=== PATIENT | male | born 1950 | race Caucasian/White ===

== ENCOUNTER 2018-06-18 07:29 | Inpatient (IN) | payer MEDICARE, BC ==
[~2018-06-18 07:29] MED LIST: Lactated Ringers 1,000 ML IV SCH; Lidocaine 1%/Sod Bicarbonate in NS 8.4% 1 ML Syringe IDERM PRN; Sodium Chloride 0.9% 10 ML Syringe FLUSH PRN
--- NOTE | 2018-06-18 08:04 | PCM.PREANE ---
Preanesthetic Assessment - Anesthesia/Transfusion/Family Hx Anesthesia History: Prior Anesthesia Without Reaction Transfusion History: No Prior Transfusion(s) - Review of Systems General: No Symptoms Pulmonary: No Symptoms Cardiovascular: No Symptoms Gastrointestinal: No Symptoms Neurological: No Symptoms Other: Reports: None - Physical Assessment NPO Status Date: 06/17/18 NPO Status Time: 20:00 O2 Sat by Pulse Oximetry: 95 Respiratory Rate: 18 Blood Pressure: 122/87 Temperature: 97.9 F ASA Class: 3 Mental Status: Alert & Oriented x3 Airway Class: Mallampati = 3 (short wide neck) Dentition: Reports: [place](s), Broken Tooth/Teeth Thyro-Mental Finger Breadths: 3 Mouth Opening Finger Breadths: 3 ROM/Head Extension: Full Lungs: Clear to Auscultation Cardiovascular: Regular Rate - Lab Values: Laboratory Last Values C-Reactive Protein 0.2 mg/dL (<1.0) 06/14/18 08:04 MRSA (PCR) Negative 05/22/18 10:48 - Allergies Allergies/Adverse Reactions: Allergies Allergy/AdvReac Type Severity Reaction Status Date / Time No Known Allergies Allergy Verified 06/18/18 08:16 - Anesthesia Plan Beta Delicia: Metoprolol Med Last Dose Date: 06/18/18 Med Last Dose Time: 05:30 - Acknowledgements Anesthesia Type Planned: General Anesthesia, Regional Block (Left interscalene) Pt an Appropriate Candidate for the Planned Anesthesia: Yes Alternatives and Risks of Anesthesia Discussed w Pt/Guardian: Yes Pt/Guardian Understands and Agrees with Anesthesia Plan: Yes PreAnesthesia Questionnaire HEENT History: Reports: Other (See Below) Other HEENT History: tonsillitis Cardiovascular History: Reports: CAD, High Cholesterol, Hypertension Other Cardiovascular History: Denies having any heart attack. 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 Respiratory History: Reports: None Gastrointestinal History: Reports: Hemorrhoids Musculoskeletal History: Reports: Other (See Below) Other Musculoskeletal History: left shoulder pain, sciatica, left index fingetip amputation Endocrine/Metabolic History: Reports: None, Obesity/BMI 30+ - Past Surgical History Head Surgeries/Procedures: Reports: None HEENT Surgical History: Reports: Tonsillectomy Cardiovascular Surgical History: Reports: Coronary Artery Bypass Respiratory Surgical History: Reports: None GI Surgical History: Reports: Colonoscopy (x5) Male Surgical History: Reports: Vasectomy Endocrine Surgical History: Reports: None Neurological Surgical History: Reports: None Musculoskeletal Surgical History: Reports: None Oncologic Surgical History: Reports: None Dermatological Surgical History: Reports: None - SUBSTANCE USE Smoking Status *Q: Former Smoker Second Hand Smoke Exposure: No Days Per Week of Alcohol Use: 7 Number of Drinks Per Day: 2 Total Drinks Per Week: 14 Recreational Drug Use History: No - HOME MEDS Home Medications: Home Meds Allopurinol [Zyloprim] 100 mg PO DAILY 06/15/18 [History] Aspirin 81 mg PO DAILY 06/15/18 [History] Fish Oil/[place]-3 Fatty Acids [Fish Oil 1,000 MG] 1 gm PO BID 06/15/18 [History] Lisinopril 20 mg PO DAILY 06/15/18 [History] Metoprolol Tartrate 12.5 mg PO BID 06/15/18 [History] Omeprazole Magnesium [Prilosec Otc] 20 mg PO DAILY 06/15/18 [History] Rosuvastatin Calcium [Crestor] 40 mg PO BEDTIME 06/15/18 [History] Tamsulosin [Flomax] 0.4 mg PO DAILY 06/15/18 [History] Ubidecarenone [Coq-10] 100 mg PO DAILY 06/15/18 [History] amLODIPine Besylate [Norvasc] 5 mg PO DAILY 06/15/18 [History] - CURRENT (IN HOUSE) MEDS Current Meds: Current Medications Aspirin (Ecotrin) 325 mg PO BID [facility] Bisacodyl (Dulcolax) 5 mg PO DAILY PRN PRN Reason: Constipation Cyclobenzaprine HCl (Flexeril) 10 mg PO TID PRN PRN Reason: Spasms Docusate Sodium (Colace) 100 mg PO BID [facility] Famotidine (Pepcid) 20 mg PO Q12H [facility] Lactated Ringer's (Ringers, Lactated) 1,000 mls @ 125 mls/hr IV ASDIRECTED [facility] Stop: 06/18/18 23:00 Cefazolin Sodium/Dextrose 2 gm (/ Premix) 50 mls @ 100 mls/hr IV Q8H [facility] Stop: 06/18/18 23:14 Ketorolac Tromethamine (Toradol) 15 mg IVPUSH Q6H PRN PRN Reason: Pain Lidocaine/Sodium Bicarbonate (Buffered Lidocaine 1% In Ns 8.4%) 0.25 ml IDERM ONETIME PRN PRN Reason: Prior to IV Start Stop: 06/18/18 18:00 Magnesium Hydroxide (Milk Of Magnesia) 30 ml PO BID PRN PRN Reason: Constipation Morphine Sulfate (Morphine) 2 mg IVPUSH Q2H PRN PRN Reason: Breakthrough Pain Naloxone HCl (Narcan) 0.1 mg IVPUSH Q5M PRN PRN Reason: Oversedation Ondansetron HCl (Zofran) 4 mg IVPUSH Q6H PRN PRN Reason: Nausea/Vomiting Oxycodone/Acetaminophen (Percocet 325-5 Mg) 1 - 2 tab PO Q4H PRN PRN Reason: Pain Senna (Senna) 8.6 mg PO BID PRN PRN Reason: Constipation Sodium Chloride (Saline Flush) 10 ml FLUSH ASDIRECTED PRN PRN Reason: Keep Vein Open Stop: 06/18/18 18:00
[2018-06-18] MEDS ORDERED: Midazolam 1 MG/ML 2 ML SDV ONE (08:27)
[2018-06-18] MEDS ORDERED: fentaNYL 100 MCG/2 ML SDV ONE ×2 (08:27→10:03)
[2018-06-18] MEDS ORDERED: Ropivacaine 0.5% 5 MG/ML 30 ML SDV ONE (08:38)
[2018-06-18] MEDS ORDERED: EPINEPHrine 1 MG/ML SDV ONE (08:38)
[2018-06-18] MEDS ORDERED: Triamcinolone Acetonide 40 MG/ML 1 ML MDV ONE (09:18)
[2018-06-18] MEDS ORDERED: Bupivacaine 0.25% 10 ML SDV ONE (09:18)
[2018-06-18] MEDS ORDERED: ceFAZolin 1 GM Vial ONE (10:02)
[2018-06-18] MEDS ORDERED: Lactated Ringers 1,000 ML ONE (10:25)
[2018-06-18] MEDS ORDERED: Succinylcholine/Normal Saline 100 MG/5 ML Syringe ONE (10:25)
[2018-06-18] MEDS ORDERED: Rocuronium 50 MG/5 ML Vial ONE ×2 (10:25→10:54)
[2018-06-18] MEDS ORDERED: Etomidate 2 MG/ML 20 ML SDV IVPUSH ONE (10:25)
[2018-06-18] MEDS: Iodine/Sodium Iodide 2% Tincture 30 ML Bottle ONE ×2 (11:30→12:12)
[2018-06-18] MEDS: ceFAZolin 1 GM Vial ONE ×2 (11:31→12:13)
--- NOTE | 2018-06-18 11:31 | PCM.PRNOTE ---
- Free Text/Narrative Note: Postoperative regional pain control requested by surgeon. [Lt INTERSCALENE REGIONAL BLOCK] Diagnosis: Left shoulder osteoarthritis. Surgery: Left total shoulder arthroplasty Procedure: Left Interscalene Nerve Block with U/S guidance and nerve stimulator Risks and benefits discussed with the patient, including left upper extremity weakness x 24 hrs., block failure, postoperative neck pain, possible nerve damage, facial redness and difficulty breathing. Vital signs and labs reviewed. Permit signed. .Patient in preoperative area, supine on the stretcher with head rotated slightly to the right, positioning using the pillow. Time out done, IV Midazolam 2 mg and Fentanyl 50 mcg given . Oxygen 2 L via nasal cannula. Patient maintains communication with the provider throughout the procedure. Left side of the neck was prepped with Chloraprep x 1 and allowed to dry. Under aseptic technique the left subclavian artery and brachial plexus cords were identified under ultrasound, and subsequently the probe was moved cephalad while keeping the brachial plexus in view until the trunks/divisions were visualized between the scalene muscles prior to needle insertion. Local infiltration with 1% Lidocaine. 2" Stimuplex needle #22 G was inserted under US guidance. Biceps brachii muscle response obtained at 0.5 mA with nerve stimulation. Under direct visualization of needle tip the injection of 0.5% Ropivacaine with 150 mcg of epinephrine total of 30 mls was injected in divided doses maintaining negative aspiration was completed without problems. Patient has tolerated the procedure well. No local anesthetic toxicity was noted. Ultrasound images are attached to the chart. Time: :11 - 09:21 Date: 06/18/2018 Roverto Del Real CRNA
[2018-06-18] MEDS: Bupivacaine 0.25% 30 ML SDV ONE ×2 (11:33→12:32)
[2018-06-18] MEDS: Vancomycin 1 GM SDV ONE ×2 (11:34→12:17)
[2018-06-18] MEDS ORDERED: Lidocaine 1% 2 ML ONE (11:41)
[2018-06-18] MEDS ORDERED: Ondansetron 4 MG/2 ML SDV ONE (11:45)
[2018-06-18] MEDS ORDERED: Dexamethasone 4 MG/ML 5 ML MDV ONE (11:50)
[2018-06-18] MEDS ORDERED: Magnesium Hydroxide 400 MG/5 ML Susp 30 ML Cup PO PRN (12:00)
[2018-06-18] MEDS ORDERED: Naloxone 0.4 MG/ML SDV IVPUSH PRN (12:00)
[2018-06-18] MEDS ORDERED: Bisacodyl 5 MG Tab PO PRN (12:00)
[2018-06-18] MEDS ORDERED: Sennosides 8.6 MG Tab PO PRN (12:00)
[2018-06-18] MEDS ORDERED: Morphine 2 MG/ML Syringe IVPUSH PRN (12:00)
[2018-06-18] MEDS ORDERED: Ondansetron 4 MG/2 ML SDV IVPUSH PRN (12:00)
--- NOTE | 2018-06-18 13:02 | PCM.POSTAN ---
POST ANESTHESIA ASSESSMENT - MENTAL STATUS Mental Status: Alert, Oriented - VITAL SIGNS Pulse Rate: 74 SaO2: 94 Resp Rate: 15 Blood Pressure: 137/70 Temperature: 98.5 F - RESPIRATORY Respiratory Status: Respiratory Rate WNL, O2 Saturation Stable, Supplemental Oxygen - CARDIOVASCULAR CV Status: Pulse Rate WNL, Blood Pressure Stable - GASTROINTESTINAL GI Status: No Symptoms - POST OP HYDRATION Hydration Status: Adequate & Stable
[2018-06-18] MEDS: Ketorolac 15 MG/ML SDV IVPUSH PRN ×2 (13:59→20:38)
[2018-06-18] MEDS ORDERED: Scopolamine 1.5 MG Transdermal Patch TRDERM PRN (16:10)
[2018-06-18] MEDS: ceFAZolin 2 GM in Premix Bag 1 BAG IV SCH (17:49)
[2018-06-18] MEDS: Docusate Sodium 100 MG Cap PO SCH (20:34)
[2018-06-18] MEDS: Metoprolol Tartrate 25 MG Tab PO SCH (20:35)
[2018-06-18] MEDS: Acetaminophen/oxyCODONE 325-5 MG Tab PO PRN (20:36)
[2018-06-18] MEDS ORDERED: Famotidine 20 MG Tab PO SCH (21:00)
[2018-06-18] MEDS ORDERED: Rosuvastatin 10 MG Tab PO SCH (21:00)
--- NOTE | 2018-06-18 21:03 | PCM.SN ---
- Free Text/Narrative Note: In to see Bertrand. He is doing well overall. States he has no pain, but does have some numbness/tingling in his left thumb and pointer finger. Otherwise his left hand is neurovascularly intact. No other complaints at this time. He denies any headache, F/C, N/V/D, CP, SOB. No concerns from nursing.
[2018-06-19] MEDS: Acetaminophen/oxyCODONE 325-5 MG Tab PO PRN ×3 (02:52→11:15)
[2018-06-19] MEDS: ceFAZolin 2 GM in Premix Bag 1 BAG IV SCH ×2 (02:52→09:09)
[2018-06-19] MEDS: Cyclobenzaprine 10 MG Tab PO PRN ×2 (02:53→10:33)
--- NOTE | 2018-06-19 06:27 | PCM.CONSN ---
- General Info Date of Service: 06/19/18 Admission Dx/Problem (Free Text): Osteoarthritis of shoulder Subjective Update: In to see Ed. He is doing very well. He has been working with therapies and they report he is doing well. He is off oxygen and has urinated. He has no complaints or concerns. No nursing concerns. Functional Status: Reports: Pain Controlled, Tolerating Diet, Ambulating, Urinating, Incentive Spirometry. Denies: New Symptoms - Review of Systems General: Reports: No Symptoms. Denies: Fever HEENT: Reports: No Symptoms Pulmonary: Reports: No Symptoms. Denies: Shortness of Breath, Cough, Wheezing Cardiovascular: Reports: No Symptoms. Denies: Chest Pain, Palpitations, Lightheadedness Gastrointestinal: Reports: No Symptoms. Denies: Abdominal Pain, Constipation, Diarrhea, Nausea, Vomiting Genitourinary: Reports: No Symptoms Musculoskeletal: Reports: Arm Pain Skin: Reports: No Symptoms Neurological: Reports: No Symptoms Psychiatric: Reports: No Symptoms - Patient Data Vitals - Most Recent: Last Vital Signs Temp 98.8 F 06/19/18 03:35 Pulse 59 L 06/19/18 03:35 Resp 18 06/19/18 03:35 BP 102/64 06/19/18 03:35 Pulse Ox 98 06/19/18 03:35 Weight - Most Recent: 214 lb 5 oz I&O - Last 24 Hours: Intake & Output 06/18/18 06/18/18 06/19/18 14:59 22:59 06:59 Intake Total 50 500 550 Balance 50 500 550 Lab Results Last 24 Hours: Laboratory Results - last 24 hr 06/19/18 06/19/18 Range/Units 04:55 04:55 WBC 17.22 H (4.23-9.07) K/mm3 RBC 4.48 L (4.63-6.08) M/mm3 Hgb 13.4 L (13.7-17.5) gm/L Hct 39.6 L (40.1-51.0) % MCV 88.4 (79.0-92.2) fl MCH 29.9 (25.7-32.2) pg MCHC 33.8 (32.2-35.5) g/dl RDW Std Deviation 43.0 (35.1-43.9) fL Plt Count 246 (163-337) K/mm3 MPV 10.4 (9.4-12.3) fl Sodium 138 (136-145) mEq/L Potassium 4.5 (3.5-5.1) mEq/L Chloride 105 (98-107) mEq/L Carbon Dioxide 24 (21-32) mEq/L Anion Gap 13.5 (5-15) BUN 20 H (7-18) mg/dL Creatinine 1.1 (0.7-1.3) mg/dL Est Cr Clr Drug Dosing 62.18 mL/min Estimated GFR (MDRD) > 60 (>60) mL/min BUN/Creatinine Ratio 18.2 H (14-18) Glucose 132 H (80-115) mg/dL Calcium 8.6 (8.5-10.1) mg/dL Total Bilirubin 0.5 (0.2-1.0) mg/dL AST 15 (15-37) U/L ALT 21 (16-63) U/L Alkaline Phosphatase 57 (46-116) U/L Total Protein 6.2 L (6.4-8.2) g/dl Albumin 3.2 L (3.4-5.0) g/dl Globulin 3.0 gm/dL Albumin/Globulin Ratio 1.1 (1-2) Med Orders - Current: Current Medications Allopurinol (Zyloprim) 100 mg PO DAILY [facility] Amlodipine Besylate (Norvasc) 5 mg PO DAILY [facility] Aspirin (Ecotrin) 325 mg PO BID [facility] Bisacodyl (Dulcolax) 5 mg PO DAILY PRN PRN Reason: Constipation Cyclobenzaprine HCl (Flexeril) 10 mg PO TID PRN PRN Reason: Spasms Last Admin: 06/19/18 02:53 Dose: 10 mg Docusate Sodium (Colace) 100 mg PO BID [facility] Last Admin: 06/18/18 20:34 Dose: 100 mg Cefazolin Sodium/Dextrose 2 gm (/ Premix) 50 mls @ 100 mls/hr IV Q8H [facility] Stop: 06/19/18 10:29 Last Admin: 06/19/18 02:52 Dose: 100 mls/hr Ketorolac Tromethamine (Toradol) 15 mg IVPUSH Q6H PRN PRN Reason: Pain Last Admin: 06/18/18 20:38 Dose: 15 mg Lisinopril (Prinivil) 20 mg PO DAILY [facility] Magnesium Hydroxide (Milk Of Magnesia) 30 ml PO BID PRN PRN Reason: Constipation Metoprolol Tartrate (Lopressor) 12.5 mg PO BID [facility] Last Admin: 06/18/18 20:35 Dose: 12.5 mg Miscellaneous Information (Remove Patch) 1 ea TRDERM Q72H PRN PRN Reason: patch removal Morphine Sulfate (Morphine) 2 mg IVPUSH Q2H PRN PRN Reason: Breakthrough Pain Naloxone HCl (Narcan) 0.1 mg IVPUSH Q5M PRN PRN Reason: Oversedation Ondansetron HCl (Zofran) 4 mg IVPUSH Q6H PRN PRN Reason: Nausea/Vomiting Last Admin: 06/18/18 13:59 Dose: 4 mg Oxycodone/Acetaminophen (Percocet 325-5 Mg) 1 - 2 tab PO Q4H PRN PRN Reason: Pain Last Admin: 06/19/18 02:52 Dose: 2 tab Pantoprazole Sodium (Protonix) 40 mg PO DAILY [facility] Rosuvastatin Calcium (Crestor) 40 mg PO BEDTIME [facility] Last Admin: 06/18/18 20:34 Dose: 40 mg Scopolamine (Transderm-Scop) 1.5 mg TRDERM Q72H PRN PRN Reason: Nausea Last Admin: 06/18/18 16:28 Dose: 1.5 mg Senna (Senna) 8.6 mg PO BID PRN PRN Reason: Constipation Tamsulosin HCl (Flomax) 0.4 mg PO DAILY [facility] Discontinued Medications Bupivacaine HCl (Marcaine 0.25%) Confirm Administered Dose 30 ml .ROUTE .STK- MED ONE Stop: 06/18/18 09:06 Last Admin: 06/18/18 12:32 Dose: 10 ml Bupivacaine HCl (Sensorcaine-Mpf 0.25%) Confirm Administered Dose 10 ml .ROUTE .STK-MED ONE Stop: 06/18/18 09:19 Cefazolin Sodium (Ancef) Confirm Administered Dose 2 gm .ROUTE .STK-MED ONE Stop: 06/18/18 09:06 Last Admin: 06/18/18 12:13 Dose: 2 gm Cefazolin Sodium (Ancef) Confirm Administered Dose 2 gm .ROUTE .STK-MED ONE Stop: 06/18/18 10:03 Dexamethasone (Dexamethasone) Confirm Administered Dose 20 mg .ROUTE .STK-MED ONE Stop: 06/18/18 11:51 Epinephrine HCl (Adrenalin) Confirm Administered Dose 1 mg .ROUTE .STK-MED ONE Stop: 06/18/18 08:39 Etomidate (Amidate) Confirm Administered Dose 40 mg IVPUSH .STK-MED ONE Stop: 06/18/18 10:26 Famotidine (Pepcid) 20 mg PO Q12H [facility] Fentanyl (Sublimaze) Confirm Administered Dose 100 mcg .ROUTE .STK-MED ONE Stop: 06/18/18 08:28 Fentanyl (Sublimaze) Confirm Administered Dose 100 mcg .ROUTE .STK-MED ONE Stop: 06/18/18 10:04 Lactated Ringer's (Ringers, Lactated) 1,000 mls @ 125 mls/hr IV ASDIRECTED [facility] Stop: 06/18/18 23:00 Last Admin: 06/18/18 08:40 Dose: 125 mls/hr Lactated Ringer's (Ringers, Lactated) Confirm Administered Dose 1,000 mls @ as directed .ROUTE .ST-MED ONE Stop: 06/18/18 10:26 Lidocaine HCl (Xylocaine-Mpf 1%) Confirm Administered Dose 5 mls @ as directed .ROUTE .ST-MED ONE Stop: 06/18/18 10:26 Lidocaine HCl (Xylocaine-Mpf 1%) Confirm Administered Dose 2 mls @ as directed .ROUTE .STK-MED ONE Stop: 06/18/18 11:42 Iodine (Iodine 2% Mild Tincture) Confirm Administered Dose 30 ml .ROUTE .ST- MED ONE Stop: 06/18/18 09:06 Last Admin: 06/18/18 12:12 Dose: 18 ml Lidocaine/Sodium Bicarbonate (Buffered Lidocaine 1% In Ns 8.4%) 0.25 ml IDERM ONETIME PRN PRN Reason: Prior to IV Start Stop: 06/18/18 18:00 Midazolam HCl (Versed 1 Mg/Ml) Confirm Administered Dose 2 mg .ROUTE .STK-MED ONE Stop: 06/18/18 08:28 Non-Formulary Medication (Ubidecarenone) 100 mg PO DAILY [facility] Ondansetron HCl (Zofran) Confirm Administered Dose 8 mg .ROUTE .STK-MED ONE Stop: 06/18/18 11:46 Rocuronium [place] (Zemuron) Confirm Administered Dose 50 mg .ROUTE .STK-MED ONE Stop: 06/18/18 10:26 Rocuronium [place] (Zemuron) Confirm Administered Dose 50 mg .ROUTE .STK-MED ONE Stop: 06/18/18 10:55 Ropivacaine (Naropin 0.5%) Confirm Administered Dose 30 ml .ROUTE .STK-MED ONE Stop: 06/18/18 08:39 Sodium Chloride (Saline Flush) 10 ml FLUSH ASDIRECTED PRN PRN Reason: Keep Vein Open Stop: 06/18/18 18:00 Succinylcholine Chloride (Succinylcholine In Ns Pf) Confirm Administered Dose 100 mg .ROUTE .STK-MED ONE Stop: 06/18/18 10:26 Tranexamic Acid (Cyklokapron) Confirm Administered Dose 1,000 mg .ROUTE .STK- MED ONE Stop: 06/18/18 09:06 Last Admin: 06/18/18 12:17 Dose: 1,000 mg Triamcinolone Acetonide (Kenalog-40) Confirm Administered Dose 80 mg .ROUTE .STK -MED ONE Stop: 06/18/18 09:19 Vancomycin HCl (Vancomycin) Confirm Administered Dose 1 gm .ROUTE .STK-MED ONE Stop: 06/18/18 09:06 Last Admin: 06/18/18 12:17 Dose: 1 gm - Exam Quality Assessment: DVT Prophylaxis. No: Supplemental Oxygen, Urine Catheter General: Alert, Oriented, Cooperative, No Acute Distress HEENT: Pupils Equal, Pupils Reactive, EOMI, Mucous Membr. Moist/[place] Neck: Supple Lungs: Clear to Auscultation, Normal Respiratory Effort Cardiovascular: Regular Rate, Regular Rhythm GI/Abdominal Exam: Normal Bowel Sounds, Soft, Non-Tender, No Distention (Male) Exam: Deferred Back Exam: Normal Inspection, Full Range of Motion Extremities: No Pedal Edema, Normal Capillary Refill, Arm Pain, Limited Range of Motion, Other (Bandage in place on left shoulder) Skin: Warm, Dry, Intact Wound/Incisions: Dressing Dry and Intact, No Drainage Neurological: No New Focal Deficit Psy/Mental Status: Alert, Normal Affect, Normal Mood Consult PN Assessment/Plan POD#: 1 Procedures: Procedures ASSAY OF TROPONIN QUANT (08/03/16) MRI JOINT UPR EXTREM W/O DYE (04/11/18) OFFICE/OUTPATIENT VISIT NEW (08/03/16) ROUTINE VENIPUNCTURE (08/03/16) X-RAY EXAM OF SKULL (04/11/18) (1) Status post total replacement of left shoulder SNOMED Code(s): 835319689, 778864968 Code(s): Z96.612 - PRESENCE OF LEFT ARTIFICIAL SHOULDER JOINT Priority: High Current Visit: Yes (2) Osteoarthritis SNOMED Code(s): 961380566 Code(s): M19.90 - UNSPECIFIED OSTEOARTHRITIS, UNSPECIFIED SITE Priority: High Current Visit: Yes Qualifiers: Osteoarthritis location: shoulder Osteoarthritis type: primary Laterality : left Qualified Code(s): M19.012 - Primary osteoarthritis, left shoulder (3) CAD (coronary artery disease) SNOMED Code(s): 45934220 Code(s): I25.10 - ATHSCL HEART DISEASE OF [place] CORONARY ARTERY W/O ANG PCTRS Current Visit: Yes (4) HLD (hyperlipidemia) SNOMED Code(s): 58751376 Code(s): E78.5 - HYPERLIPIDEMIA, UNSPECIFIED Priority: Low Current Visit : No Qualifiers: Hyperlipidemia type: unspecified Qualified Code(s): E78.5 - Hyperlipidemia , unspecified (5) HTN (hypertension) SNOMED Code(s): 26046219 Code(s): I10 - ESSENTIAL (PRIMARY) HYPERTENSION Priority: Medium Current Visit: No Qualifiers: Hypertension type: unspecified Qualified Code(s): I10 - Essential (primary ) hypertension (6) Sciatica SNOMED Code(s): 48288654 Code(s): M54.30 - SCIATICA, UNSPECIFIED SIDE Priority: Low Current Visit : No Qualifiers: Laterality: unspecified laterality Qualified Code(s): M54.30 - Sciatica, unspecified side Problem List Initiated/Reviewed/Updated: Yes Plan: I/P: Acute: S/P left total shoulder arthroplasty - post-operative day 1 -DVT prophylaxis and pain management per primary care team -PT/OT -IS/RT -Monitor oxygen saturation -Titrate oxygen as needed -Vital signs stable -Monitor labs -Pre-operative Hgb was [number] Osteoarthritis of left shoulder -Pain management per primary care team Chronic: CAD HLD hypertension sciatica obesity Plan: CM for discharge planning GI prophylaxis Home medications as indicated Other orders as listed above Routine AM labs He is a full code. His PCP is Dr. Goodwin From a hospitalist standpoint Ed is doing very well. He has been working with therapies. Pain is controlled. He has urinated. Vital signs and labs look good. He is cleared for discharge pending primary team and therapy approval. Thank you for allowing us to participate in the care of this patient!!
[2018-06-19] MEDS: Ketorolac 15 MG/ML SDV IVPUSH PRN (07:24)
--- NOTE | 2018-06-19 07:40 | PCM.SURGPN ---
- General Info Date of Service: 06/19/18 POD#: 1 Functional Status: Reports: Pain Controlled, Tolerating Diet, Ambulating, Urinating, Incentive Spirometry, Other (Nusing states pt is doing very well.) - Patient Data Vitals - Most Recent: Last Vital Signs Temp 98.8 F 06/19/18 03:35 Pulse 59 L 06/19/18 03:35 Resp 18 06/19/18 03:35 BP 102/64 06/19/18 03:35 Pulse Ox 98 06/19/18 03:35 Weight - Most Recent: 214 lb 5 oz I&O - Last 24 Hours: Intake & Output 06/18/18 06/19/18 06/19/18 22:59 06:59 14:59 Intake Total 500 550 Balance 500 550 Lab Results Last 24 Hrs: Laboratory Results - last 24 hr 06/19/18 06/19/18 Range/Units 04:55 04:55 WBC 17.22 H (4.23-9.07) K/mm3 RBC 4.48 L (4.63-6.08) M/mm3 Hgb 13.4 L (13.7-17.5) gm/L Hct 39.6 L (40.1-51.0) % MCV 88.4 (79.0-92.2) fl MCH 29.9 (25.7-32.2) pg MCHC 33.8 (32.2-35.5) g/dl RDW Std Deviation 43.0 (35.1-43.9) fL Plt Count 246 (163-337) K/mm3 MPV 10.4 (9.4-12.3) fl Sodium 138 (136-145) mEq/L Potassium 4.5 (3.5-5.1) mEq/L Chloride 105 (98-107) mEq/L Carbon Dioxide 24 (21-32) mEq/L Anion Gap 13.5 (5-15) BUN 20 H (7-18) mg/dL Creatinine 1.1 (0.7-1.3) mg/dL Est Cr Clr Drug Dosing 62.18 mL/min Estimated GFR (MDRD) > 60 (>60) mL/min BUN/Creatinine Ratio 18.2 H (14-18) Glucose 132 H (80-115) mg/dL Calcium 8.6 (8.5-10.1) mg/dL Total Bilirubin 0.5 (0.2-1.0) mg/dL AST 15 (15-37) U/L ALT 21 (16-63) U/L Alkaline Phosphatase 57 (46-116) U/L Total Protein 6.2 L (6.4-8.2) g/dl Albumin 3.2 L (3.4-5.0) g/dl Globulin 3.0 gm/dL Albumin/Globulin Ratio 1.1 (1-2) Med Orders - Current: Current Medications Allopurinol (Zyloprim) 100 mg PO DAILY [facility] Amlodipine Besylate (Norvasc) 5 mg PO DAILY [facility] Aspirin (Ecotrin) 325 mg PO BID [facility] Bisacodyl (Dulcolax) 5 mg PO DAILY PRN PRN Reason: Constipation Cyclobenzaprine HCl (Flexeril) 10 mg PO TID PRN PRN Reason: Spasms Last Admin: 06/19/18 02:53 Dose: 10 mg Docusate Sodium (Colace) 100 mg PO BID [facility] Last Admin: 06/18/18 20:34 Dose: 100 mg Cefazolin Sodium/Dextrose 2 gm (/ Premix) 50 mls @ 100 mls/hr IV Q8H [facility] Stop: 06/19/18 10:29 Last Admin: 06/19/18 02:52 Dose: 100 mls/hr Lisinopril (Prinivil) 20 mg PO DAILY [facility] Magnesium Hydroxide (Milk Of Magnesia) 30 ml PO BID PRN PRN Reason: Constipation Metoprolol Tartrate (Lopressor) 12.5 mg PO BID [facility] Last Admin: 06/18/18 20:35 Dose: 12.5 mg Miscellaneous Information (Remove Patch) 1 ea TRDERM Q72H PRN PRN Reason: patch removal Morphine Sulfate (Morphine) 2 mg IVPUSH Q2H PRN PRN Reason: Breakthrough Pain Naloxone HCl (Narcan) 0.1 mg IVPUSH Q5M PRN PRN Reason: Oversedation Ondansetron HCl (Zofran) 4 mg IVPUSH Q6H PRN PRN Reason: Nausea/Vomiting Last Admin: 06/18/18 13:59 Dose: 4 mg Oxycodone/Acetaminophen (Percocet 325-5 Mg) 1 - 2 tab PO Q4H PRN PRN Reason: Pain Last Admin: 06/19/18 07:23 Dose: 2 tab Pantoprazole Sodium (Protonix) 40 mg PO DAILY [facility] Rosuvastatin Calcium (Crestor) 40 mg PO BEDTIME [facility] Last Admin: 06/18/18 20:34 Dose: 40 mg Scopolamine (Transderm-Scop) 1.5 mg TRDERM Q72H PRN PRN Reason: Nausea Last Admin: 06/18/18 16:28 Dose: 1.5 mg Senna (Senna) 8.6 mg PO BID PRN PRN Reason: Constipation Tamsulosin HCl (Flomax) 0.4 mg PO DAILY [facility] Discontinued Medications Bupivacaine HCl (Marcaine 0.25%) Confirm Administered Dose 30 ml .ROUTE .STK- MED ONE Stop: 06/18/18 09:06 Last Admin: 06/18/18 12:32 Dose: 10 ml Bupivacaine HCl (Sensorcaine-Mpf 0.25%) Confirm Administered Dose 10 ml .ROUTE .STK-MED ONE Stop: 06/18/18 09:19 Cefazolin Sodium (Ancef) Confirm Administered Dose 2 gm .ROUTE .STK-MED ONE Stop: 06/18/18 09:06 Last Admin: 06/18/18 12:13 Dose: 2 gm Cefazolin Sodium (Ancef) Confirm Administered Dose 2 gm .ROUTE .STK-MED ONE Stop: 06/18/18 10:03 Dexamethasone (Dexamethasone) Confirm Administered Dose 20 mg .ROUTE .STK-MED ONE Stop: 06/18/18 11:51 Epinephrine HCl (Adrenalin) Confirm Administered Dose 1 mg .ROUTE .STK-MED ONE Stop: 06/18/18 08:39 Etomidate (Amidate) Confirm Administered Dose 40 mg IVPUSH .STK-MED ONE Stop: 06/18/18 10:26 Famotidine (Pepcid) 20 mg PO Q12H [facility] Fentanyl (Sublimaze) Confirm Administered Dose 100 mcg .ROUTE .STK-MED ONE Stop: 06/18/18 08:28 Fentanyl (Sublimaze) Confirm Administered Dose 100 mcg .ROUTE .STK-MED ONE Stop: 06/18/18 10:04 Lactated Ringer's (Ringers, Lactated) 1,000 mls @ 125 mls/hr IV ASDIRECTED [facility] Stop: 06/18/18 23:00 Last Admin: 06/18/18 08:40 Dose: 125 mls/hr Lactated Ringer's (Ringers, Lactated) Confirm Administered Dose 1,000 mls @ as directed .ROUTE .STK-MED ONE Stop: 06/18/18 10:26 Lidocaine HCl (Xylocaine-Mpf 1%) Confirm Administered Dose 5 mls @ as directed .ROUTE .STK-MED ONE Stop: 06/18/18 10:26 Lidocaine HCl (Xylocaine-Mpf 1%) Confirm Administered Dose 2 mls @ as directed .ROUTE .STK-MED ONE Stop: 06/18/18 11:42 Iodine (Iodine 2% Mild Tincture) Confirm Administered Dose 30 ml .ROUTE .STK- MED ONE Stop: 06/18/18 09:06 Last Admin: 06/18/18 12:12 Dose: 18 ml Ketorolac Tromethamine (Toradol) 15 mg IVPUSH Q6H PRN PRN Reason: Pain Last Admin: 06/19/18 07:24 Dose: 15 mg Lidocaine/Sodium Bicarbonate (Buffered Lidocaine 1% In Ns 8.4%) 0.25 ml IDERM ONETIME PRN PRN Reason: Prior to IV Start Stop: 06/18/18 18:00 Midazolam HCl (Versed 1 Mg/Ml) Confirm Administered Dose 2 mg .ROUTE .STK-MED ONE Stop: 06/18/18 08:28 Non-Formulary Medication (Ubidecarenone) 100 mg PO DAILY [facility] Ondansetron HCl (Zofran) Confirm Administered Dose 8 mg .ROUTE .STK-MED ONE Stop: 06/18/18 11:46 Rocuronium [place] (Zemuron) Confirm Administered Dose 50 mg .ROUTE .STK-MED ONE Stop: 06/18/18 10:26 Rocuronium [place] (Zemuron) Confirm Administered Dose 50 mg .ROUTE .STK-MED ONE Stop: 06/18/18 10:55 Ropivacaine (Naropin 0.5%) Confirm Administered Dose 30 ml .ROUTE .STK-MED ONE Stop: 06/18/18 08:39 Sodium Chloride (Saline Flush) 10 ml FLUSH ASDIRECTED PRN PRN Reason: Keep Vein Open Stop: 06/18/18 18:00 Succinylcholine Chloride (Succinylcholine In Ns Pf) Confirm Administered Dose 100 mg .ROUTE .STK-MED ONE Stop: 06/18/18 10:26 Tranexamic Acid (Cyklokapron) Confirm Administered Dose 1,000 mg .ROUTE .STK- MED ONE Stop: 06/18/18 09:06 Last Admin: 06/18/18 12:17 Dose: 1,000 mg Triamcinolone Acetonide (Kenalog-40) Confirm Administered Dose 80 mg .ROUTE .STK -MED ONE Stop: 06/18/18 09:19 Vancomycin HCl (Vancomycin) Confirm Administered Dose 1 gm .ROUTE .STK-MED ONE Stop: 06/18/18 09:06 Last Admin: 06/18/18 12:17 Dose: 1 gm - Exam Wound/Incisions: Dressing Dry and Intact General: Alert, Cooperative, No Acute Distress Lungs: Normal Respiratory Effort Extremities: Other (NVS intact for LUE. ) - Problem List Review Problem List Initiated/Reviewed/Updated: Yes - My Orders Last 24 Hours: Active Orders 24 hr Category Date Time Status Patient Status [ADT] Routine ADT 06/18/18 06:40 Active Cooling Warming Measures [RC] ASDIRECTED Care 06/18/18 12:12 Inactive Notify Provider [RC] 10,22 Care 06/18/18 12:12 Active Oxygen Therapy [RC] PRN Care 06/18/18 06:40 Active Ready for Discharge [RC] PER UNIT ROUTINE Care 06/19/18 07:38 Ordered Vital Signs [RC] Q15M Care 06/18/18 12:12 Inactive Vital Signs [RC] Q4HR Care 06/18/18 06:40 Active Consult to Physician [CONS] Routine Cons 06/18/18 06:40 Active Regular Diet [DIET] Diet 06/18/18 Lunch Active Fluoro Up To 1Hr [CR] Routine Exams 06/18/18 08:28 Taken Acetaminophen/oxyCODONE [Percocet 325-5 MG] Med 06/18/18 12:00 Active 1 - 2 tab PO Q4H PRN Allopurinol [Zyloprim] Med 06/19/18 09:00 Active 100 mg PO DAILY Aspirin [Ecotrin] Med 06/19/18 09:00 Active 325 mg PO BID Bisacodyl [Dulcolax] Med 06/18/18 12:00 Active 5 mg PO DAILY PRN Cyclobenzaprine [Flexeril] Med 06/18/18 12:00 Active 10 mg PO TID PRN Docusate Sodium [Colace] Med 06/18/18 21:00 Active 100 mg PO BID Lisinopril [Prinivil] Med 06/19/18 09:00 Active 20 mg PO DAILY Magnesium Hydroxide [Milk of Magnesia] Med 06/18/18 12:00 Active 30 ml PO BID PRN Metoprolol Tartrate [Lopressor] Med 06/18/18 21:00 Active 12.5 mg PO BID Morphine Med 06/18/18 12:00 Active 2 mg IVPUSH Q2H PRN Naloxone [Narcan] Med 06/18/18 12:00 Active 0.1 mg IVPUSH Q5M PRN Ondansetron [Zofran] Med 06/18/18 12:00 Active 4 mg IVPUSH Q6H PRN Pantoprazole [ProTONIX] Med 06/19/18 09:00 Active 40 mg PO DAILY Remove Patch Med 06/21/18 16:15 Active 1 ea TRDERM Q72H PRN Rosuvastatin [Crestor] Med 06/18/18 21:00 Active 40 mg PO BEDTIME Scopolamine [Transderm-Scop] Med 06/18/18 16:10 Active 1.5 mg TRDERM Q72H PRN Sennosides [Senna] Med 06/18/18 12:00 Active 8.6 mg PO BID PRN Tamsulosin [Flomax] Med 06/19/18 09:00 Active 0.4 mg PO DAILY amLODIPine [Norvasc] Med 06/19/18 09:00 Active 5 mg PO DAILY ceFAZolin [Ancef] 2 gm Med 06/18/18 18:00 Active Premix Bag 1 bag IV Q8H Antiembolic Hose [OM.PC] Per Unit Routine Oth 06/18/18 06:41 Ordered Ice Therapy [OM.PC] Per Unit Routine Oth 06/18/18 06:41 Ordered Resuscitation Status Routine Resus Stat 06/18/18 06:40 Ordered Medication Orders Allopurinol (Zyloprim) 100 mg PO DAILY [facility] Amlodipine Besylate (Norvasc) 5 mg PO DAILY [facility] Aspirin (Ecotrin) 325 mg PO BID [facility] Bisacodyl (Dulcolax) 5 mg PO DAILY PRN PRN Reason: Constipation Cyclobenzaprine HCl (Flexeril) 10 mg PO TID PRN PRN Reason: Spasms Last Admin: 06/19/18 02:53 Dose: 10 mg Docusate Sodium (Colace) 100 mg PO BID [facility] Last Admin: 06/18/18 20:34 Dose: 100 mg Cefazolin Sodium/Dextrose 2 gm (/ Premix) 50 mls @ 100 mls/hr IV Q8H [facility] Stop: 06/19/18 10:29 Last Admin: 06/19/18 02:52 Dose: 100 mls/hr Infusion: 06/18/18 18:19 Dose: 100 mls/hr Admin: 06/18/18 17:49 Dose: 100 mls/hr Lisinopril (Prinivil) 20 mg PO DAILY [facility] Magnesium Hydroxide (Milk Of Magnesia) 30 ml PO BID PRN PRN Reason: Constipation Metoprolol Tartrate (Lopressor) 12.5 mg PO BID [facility] Last Admin: 06/18/18 20:35 Dose: 12.5 mg Miscellaneous Information (Remove Patch) 1 ea TRDERM Q72H PRN PRN Reason: patch removal Morphine Sulfate (Morphine) 2 mg IVPUSH Q2H PRN PRN Reason: Breakthrough Pain Naloxone HCl (Narcan) 0.1 mg IVPUSH Q5M PRN PRN Reason: Oversedation Ondansetron HCl (Zofran) 4 mg IVPUSH Q6H PRN PRN Reason: Nausea/Vomiting Last Admin: 06/18/18 13:59 Dose: 4 mg Oxycodone/Acetaminophen (Percocet 325-5 Mg) 1 - 2 tab PO Q4H PRN PRN Reason: Pain Last Admin: 06/19/18 07:23 Dose: 2 tab Admin: 06/19/18 02:52 Dose: 2 tab Admin: 06/18/18 20:36 Dose: 2 tab Pantoprazole Sodium (Protonix) 40 mg PO DAILY [facility] Rosuvastatin Calcium (Crestor) 40 mg PO BEDTIME [facility] Last Admin: 06/18/18 20:34 Dose: 40 mg Scopolamine (Transderm-Scop) 1.5 mg TRDERM Q72H PRN PRN Reason: Nausea Last Admin: 06/18/18 16:28 Dose: 1.5 mg Senna (Senna) 8.6 mg PO BID PRN PRN Reason: Constipation Tamsulosin HCl (Flomax) 0.4 mg PO DAILY [facility] - Assessment Assessment (Free Text/Narrative):: POD#1 - left TSA - Plan Plan (Free Text/Narrative):: 1. Discharge to home today if cleared by Hospitalist service and meets therapy goals. 2. ASA and frequent mobility for VTE prophylaxis. 3. Follow-up at Clinic next week. 4. Outpatient therapy. The pt's case was discussed with Dr. Tran.
--- NOTE | 2018-06-19 07:42 | PCM.DCSUM1 ---
Discharge Summary - Hospital Course Brief History: Ed is a 68 yo male who underwent left TSA with Dr. Tran on 2017. The procedure was completed under general anesthesia with regional block. The pt tolerated the procedure well and was admitted to the Medical- Surgical Unit. Medical management was provided by the Hospitalist service. The pt's Hospital course was uneventful. The pt's Hgb on POD#1 was 13.4. On POD#1, 325mg ASA BID was initiated for VTE prophylaxis. SCDs and TEDs were also ordered. A Mepilex dressing was placed at the incision site at the time of surgery and remained clean and dry. The pt participated in P.T. and O.T. and progressed well. On POD#1, the pt was deemed appropriate to discharge to home with his . - Discharge Data Discharge Date: 06/19/18 Discharge Disposition: Home, Self-Care 01 Condition: Good - Patient Summary/Data Consults: Consultations 06/18/18 06:37 OT Evaluation and Treatment [CONS] Routine PT Evaluation and Treatment [CONS] Routine 06/18/18 06:40 Consult to Physician [CONS] Routine - Patient Instructions Diet: Usual Diet as Tolerated Activity: Apply Ice, As Tolerated, Elevate Extremity, Full Weight Bearing Activity, Other: Use the immobilizer as directed. Driving: Do Not Drive Showering/Bathing: May Shower Wound/Incision Care: Keep Operative Site/Wound Site Clean and Dry, Do NOT Change Dressing Notify Provider of: Fever, Increased Pain, Swelling and Redness, Drainage, Nausea and/or Vomiting Other/Special Instructions: Please get up and moving around EVERY HOUR while awake. This helps to prevent blood clots. Have help with mobility as needed. Please take 325mg aspirin twice daily - this also helps to prevent blood clots. The medication is being used for blood clot prevention and not for pain control, so please use the medication twice daily as directed. Please wear the JILLIAN hose during the day and you may remove them at night. Please schedule for physical or occupational therapy. Complete the exercises and stretches that were instructed in the Hospital. Please use the pain medication as needed. The medication may cause drowsiness and/or constipation. You could use a stool softener like docusate sodium or Colace 100mg twice daily and/or a laxative like Miralax daily for constipation. Contact your primary care provider for further instructions if you are constipated. Try to wean from use of the pain medication as soon as able. Please do not use other medications that may cause drowsiness (other pain medications, anxiety pills, sleeping pills, allergy medications that cause drowsiness) while using the pain medication. Please do not use alcohol while using the pain medication. Use the incentive spirometer often. Please place ice to the shoulder often. Please elevate the limb to decrease swelling. Keep the Mepilex dressing in place until follow-up. Please notify the Clinic if the dressing is saturated or rolls. Increase protein intake in your diet as this helps with healing. Please call [phone] with questions or concerns. - Discharge Plan *PRESCRIPTION DRUG MONITORING PROGRAM REVIEWED*: No *COPY OF PRESCRIPTION DRUG MONITORING REPORT IN PATIENT KARYN: No Prescriptions/Med Rec: Acetaminophen/oxyCODONE [Percocet 325-5 MG] 1 - 2 tab PO Q6H PRN #60 tablet PRN Reason: Pain Aspirin [Ecotrin] 325 mg PO BID #84 tab.ec Home Medications: Home Meds Allopurinol [Zyloprim] 100 mg PO DAILY 06/15/18 [History] Lisinopril 20 mg PO DAILY 06/15/18 [History] Metoprolol Tartrate 12.5 mg PO BID 06/15/18 [History] Omeprazole Magnesium [Prilosec Otc] 20 mg PO DAILY 06/15/18 [History] Rosuvastatin Calcium [Crestor] 40 mg PO BEDTIME 06/15/18 [History] Tamsulosin [Flomax] 0.4 mg PO DAILY 06/15/18 [History] Ubidecarenone [Coq-10] 100 mg PO DAILY 06/15/18 [History] amLODIPine Besylate [Norvasc] 5 mg PO DAILY 06/15/18 [History] Acetaminophen/oxyCODONE [Percocet 325-5 MG] 1 - 2 tab PO Q6H PRN #60 tablet [Rx] Aspirin [Ecotrin] 325 mg PO BID #84 tab.ec 06/18/18 [Rx] Bisacodyl [Dulcolax] 5 mg PO DAILY PRN #0 tablet 06/18/18 [Rx] Chrom Pat/Brindal Christopher [Garcinia Cambogia Tablet] 1 each PO DAILY 06/18/18 [ History] Docusate Sodium [Colace] 100 mg PO BID cap 06/18/18 [Rx] Famotidine [Pepcid] 20 mg PO Q12H tablet 06/18/18 [Rx] Magnesium Hydroxide [Milk of Magnesia] 30 ml PO BID PRN cup 06/18/18 [Rx] Sennosides [Senna] 8.6 mg PO BID PRN tablet 06/18/18 [Rx] Referrals: Laura Diaz, CAROLINE [Physician Website Optimization Strategist] - - Patient Data Vitals - Most Recent: Last Vital Signs Temp 98.8 F 06/19/18 03:35 Pulse 59 L 06/19/18 03:35 Resp 18 06/19/18 03:35 BP 102/64 06/19/18 03:35 Pulse Ox 98 06/19/18 03:35 Weight - Most Recent: 214 lb 5 oz I&O - Last 24 hours: Intake & Output 06/18/18 06/19/18 06/19/18 22:59 06:59 14:59 Intake Total 500 550 Balance 500 550 Lab Results - Last 24 hrs: Laboratory Results - last 24 hr 06/19/18 06/19/18 Range/Units 04:55 04:55 WBC 17.22 H (4.23-9.07) K/mm3 RBC 4.48 L (4.63-6.08) M/mm3 Hgb 13.4 L (13.7-17.5) gm/L Hct 39.6 L (40.1-51.0) % MCV 88.4 (79.0-92.2) fl MCH 29.9 (25.7-32.2) pg MCHC 33.8 (32.2-35.5) g/dl RDW Std Deviation 43.0 (35.1-43.9) fL Plt Count 246 (163-337) K/mm3 MPV 10.4 (9.4-12.3) fl Sodium 138 (136-145) mEq/L Potassium 4.5 (3.5-5.1) mEq/L Chloride 105 (98-107) mEq/L Carbon Dioxide 24 (21-32) mEq/L Anion Gap 13.5 (5-15) BUN 20 H (7-18) mg/dL Creatinine 1.1 (0.7-1.3) mg/dL Est Cr Clr Drug Dosing 62.18 mL/min Estimated GFR (MDRD) > 60 (>60) mL/min BUN/Creatinine Ratio 18.2 H (14-18) Glucose 132 H (80-115) mg/dL Calcium 8.6 (8.5-10.1) mg/dL Total Bilirubin 0.5 (0.2-1.0) mg/dL AST 15 (15-37) U/L ALT 21 (16-63) U/L Alkaline Phosphatase 57 (46-116) U/L Total Protein 6.2 L (6.4-8.2) g/dl Albumin 3.2 L (3.4-5.0) g/dl Globulin 3.0 gm/dL Albumin/Globulin Ratio 1.1 (1-2) Med Orders - Current: Current Medications Allopurinol (Zyloprim) 100 mg PO DAILY [facility] Amlodipine Besylate (Norvasc) 5 mg PO DAILY [facility] Aspirin (Ecotrin) 325 mg PO BID [facility] Bisacodyl (Dulcolax) 5 mg PO DAILY PRN PRN Reason: Constipation Cyclobenzaprine HCl (Flexeril) 10 mg PO TID PRN PRN Reason: Spasms Last Admin: 06/19/18 02:53 Dose: 10 mg Docusate Sodium (Colace) 100 mg PO BID [facility] Last Admin: 06/18/18 20:34 Dose: 100 mg Cefazolin Sodium/Dextrose 2 gm (/ Premix) 50 mls @ 100 mls/hr IV Q8H [facility] Stop: 06/19/18 10:29 Last Admin: 06/19/18 02:52 Dose: 100 mls/hr Lisinopril (Prinivil) 20 mg PO DAILY [facility] Magnesium Hydroxide (Milk Of Magnesia) 30 ml PO BID PRN PRN Reason: Constipation Metoprolol Tartrate (Lopressor) 12.5 mg PO BID [facility] Last Admin: 06/18/18 20:35 Dose: 12.5 mg Miscellaneous Information (Remove Patch) 1 ea TRDERM Q72H PRN PRN Reason: patch removal Morphine Sulfate (Morphine) 2 mg IVPUSH Q2H PRN PRN Reason: Breakthrough Pain Naloxone HCl (Narcan) 0.1 mg IVPUSH Q5M PRN PRN Reason: Oversedation Ondansetron HCl (Zofran) 4 mg IVPUSH Q6H PRN PRN Reason: Nausea/Vomiting Last Admin: 06/18/18 13:59 Dose: 4 mg Oxycodone/Acetaminophen (Percocet 325-5 Mg) 1 - 2 tab PO Q4H PRN PRN Reason: Pain Last Admin: 06/19/18 07:23 Dose: 2 tab Pantoprazole Sodium (Protonix) 40 mg PO DAILY [facility] Rosuvastatin Calcium (Crestor) 40 mg PO BEDTIME [facility] Last Admin: 06/18/18 20:34 Dose: 40 mg Scopolamine (Transderm-Scop) 1.5 mg TRDERM Q72H PRN PRN Reason: Nausea Last Admin: 06/18/18 16:28 Dose: 1.5 mg Senna (Senna) 8.6 mg PO BID PRN PRN Reason: Constipation Tamsulosin HCl (Flomax) 0.4 mg PO DAILY [facility] Discontinued Medications Bupivacaine HCl (Marcaine 0.25%) Confirm Administered Dose 30 ml .ROUTE .STK- MED ONE Stop: 06/18/18 09:06 Last Admin: 06/18/18 12:32 Dose: 10 ml Bupivacaine HCl (Sensorcaine-Mpf 0.25%) Confirm Administered Dose 10 ml .ROUTE .STK-MED ONE Stop: 06/18/18 09:19 Cefazolin Sodium (Ancef) Confirm Administered Dose 2 gm .ROUTE .STK-MED ONE Stop: 06/18/18 09:06 Last Admin: 06/18/18 12:13 Dose: 2 gm Cefazolin Sodium (Ancef) Confirm Administered Dose 2 gm .ROUTE .STK-MED ONE Stop: 06/18/18 10:03 Dexamethasone (Dexamethasone) Confirm Administered Dose 20 mg .ROUTE .STK-MED ONE Stop: 06/18/18 11:51 Epinephrine HCl (Adrenalin) Confirm Administered Dose 1 mg .ROUTE .STK-MED ONE Stop: 06/18/18 08:39 Etomidate (Amidate) Confirm Administered Dose 40 mg IVPUSH .STK-MED ONE Stop: 06/18/18 10:26 Famotidine (Pepcid) 20 mg PO Q12H [facility] Fentanyl (Sublimaze) Confirm Administered Dose 100 mcg .ROUTE .STK-MED ONE Stop: 06/18/18 08:28 Fentanyl (Sublimaze) Confirm Administered Dose 100 mcg .ROUTE .STK-MED ONE Stop: 06/18/18 10:04 Lactated Ringer's (Ringers, Lactated) 1,000 mls @ 125 mls/hr IV ASDIRECTED [facility] Stop: 06/18/18 23:00 Last Admin: 06/18/18 08:40 Dose: 125 mls/hr Lactated Ringer's (Ringers, Lactated) Confirm Administered Dose 1,000 mls @ as directed .ROUTE .STK-MED ONE Stop: 06/18/18 10:26 Lidocaine HCl (Xylocaine-Mpf 1%) Confirm Administered Dose 5 mls @ as directed .ROUTE .STK-MED ONE Stop: 06/18/18 10:26 Lidocaine HCl (Xylocaine-Mpf 1%) Confirm Administered Dose 2 mls @ as directed .ROUTE .STK-MED ONE Stop: 06/18/18 11:42 Iodine (Iodine 2% Mild Tincture) Confirm Administered Dose 30 ml .ROUTE .STK- MED ONE Stop: 06/18/18 09:06 Last Admin: 06/18/18 12:12 Dose: 18 ml Ketorolac Tromethamine (Toradol) 15 mg IVPUSH Q6H PRN PRN Reason: Pain Last Admin: 06/19/18 07:24 Dose: 15 mg Lidocaine/Sodium Bicarbonate (Buffered Lidocaine 1% In Ns 8.4%) 0.25 ml IDERM ONETIME PRN PRN Reason: Prior to IV Start Stop: 06/18/18 18:00 Midazolam HCl (Versed 1 Mg/Ml) Confirm Administered Dose 2 mg .ROUTE .STK-MED ONE Stop: 06/18/18 08:28 Non-Formulary Medication (Ubidecarenone) 100 mg PO DAILY [facility] Ondansetron HCl (Zofran) Confirm Administered Dose 8 mg .ROUTE .STK-MED ONE Stop: 06/18/18 11:46 Rocuronium [place] (Zemuron) Confirm Administered Dose 50 mg .ROUTE .STK-MED ONE Stop: 06/18/18 10:26 Rocuronium [place] (Zemuron) Confirm Administered Dose 50 mg .ROUTE .STK-MED ONE Stop: 06/18/18 10:55 Ropivacaine (Naropin 0.5%) Confirm Administered Dose 30 ml .ROUTE .STK-MED ONE Stop: 06/18/18 08:39 Sodium Chloride (Saline Flush) 10 ml FLUSH ASDIRECTED PRN PRN Reason: Keep Vein Open Stop: 06/18/18 18:00 Succinylcholine Chloride (Succinylcholine In Ns Pf) Confirm Administered Dose 100 mg .ROUTE .STK-MED ONE Stop: 06/18/18 10:26 Tranexamic Acid (Cyklokapron) Confirm Administered Dose 1,000 mg .ROUTE .STK- MED ONE Stop: 06/18/18 09:06 Last Admin: 06/18/18 12:17 Dose: 1,000 mg Triamcinolone Acetonide (Kenalog-40) Confirm Administered Dose 80 mg .ROUTE .STK -MED ONE Stop: 06/18/18 09:19 Vancomycin HCl (Vancomycin) Confirm Administered Dose 1 gm .ROUTE .STK-MED ONE Stop: 06/18/18 09:06 Last Admin: 06/18/18 12:17 Dose: 1 gm
--- NOTE | 2018-06-19 08:44 | PCM48HPAN ---
Post Anesthesia Note - EVALUATION WITHIN 48HRS OF ANESTHETIC Vital Signs in Normal Range: Yes Patient Participated in Evaluation: Yes Respiratory Function Stable: Yes Airway Patent: Yes Cardiovascular Function Stable: Yes Hydration Status Stable: Yes Pain Control Satisfactory: Yes Nausea and Vomiting Control Satisfactory: Yes Mental Status Recovered: Yes - COMMENTS/OBSERVATIONS Free Text/Narrative:: Patient had some nausea/vomiting after surgery but has resolved today. Block wore off at about 0330. Doing well, no other anesthesia complications noted.
[2018-06-19] MEDS ORDERED: amLODIPine 5 MG Tab PO SCH (09:00)
[2018-06-19] MEDS ORDERED: Lisinopril 20 MG Tab PO SCH (09:00)
[2018-06-19] MEDS ORDERED: Tamsulosin 0.4 MG Cap.ER PO SCH (09:00)
[2018-06-19] MEDS ORDERED: Allopurinol 100 MG Tab PO SCH (09:00)
[2018-06-19] MEDS ORDERED: Non-Formulary Medication 1 Each (Ubidecarenone 100 MG) PO SCH (09:00)
[2018-06-19] MEDS ORDERED: Pantoprazole 40 MG Tab.CR PO SCH (09:00)
[2018-06-19] MEDS ORDERED: Aspirin 325 MG Tab.EC PO SCH (09:00)
[2018-06-19] MEDS: Docusate Sodium 100 MG Cap PO SCH (09:10)
[2018-06-19] MEDS: Metoprolol Tartrate 25 MG Tab PO SCH (09:12)
--- NOTE | 2018-06-21 09:21 | CR ---
Left shoulder: Single AP view of the left shoulder was obtained. Comparison: Prior operative fluoroscopic study performed earlier on the same day (11:42 AM). Left shoulder prosthesis is seen. Components are aligned. Underlying bony structures are intact. Parenchymal density is noted within the left mid lung most likely representing atelectasis. Impression: 1. Left shoulder prosthesis. 2. Parenchymal density within the left mid lung most likely due to atelectasis. Diagnostic code #2 I agree with preliminary report from [facility], finalized at 06/18/18, 2:41 PM Central Time
--- NOTE | 2018-06-21 09:21 | CR ---
Left shoulder: Eight fluoroscopic spot views were obtained of the left shoulder during prosthesis placement utilizing C-arm device. Study shows placement of a left shoulder prosthesis. Fluoroscopy time is given as 20.3 seconds. Impression: 1. Procedural study showing left shoulder prosthesis placement. Diagnostic code #2
--- NOTE | 2018-06-25 11:31 | PCM.OPNOTE ---
- General Post-Op/Procedure Note Date of Surgery/Procedure: 06/18/18 Operative Procedure(s): left total shoulder arthroplasty Pre Op Diagnosis: left glenohumeral arthrosis Post-Op Diagnosis: Same Anesthesia Technique: General ET Tube, Regional Block Primary Surgeon: Ken Tran Anesthesia Provider: Roverto Del Real Hand Carver: Laura Diaz Hand Carver: Kelsi Godoy EBL in mLs: 300 Complications: None Condition: Good
--- NOTE | 2018-06-25 12:25 | OR ---
DATE OF OPERATION: 06/18/2018 SURGEON: Ken Tran MD OPERATION PERFORMED: Left total shoulder arthroplasty. PREOPERATIVE DIAGNOSIS: Left glenohumeral arthrosis. POSTOPERATIVE DIAGNOSIS: Left glenohumeral arthrosis. ANESTHESIA: General endotracheal intubation with regional interscalene block ANESTHESIA PROVIDER: Roverto Del Real CRNA THREAD GRINDER TOOL: Laura Diaz PA-C and Kelsi Godoy LPN. ESTIMATED BLOOD LOSS: 300 mL. COMPLICATIONS: None. CONDITION: Stable. IMPLANTS: 1. Arthrex size 10 humeral stem. 2. Arthrex large glenoid polyethylene component. 3. Arthrex 52 x 20 mm humeral head. DESCRIPTION OF PROCEDURE: The patient was identified in the preop holding area. Proper site was marked and identified by the surgeon. The patient was taken back to the operating theater, where after adequate anesthesia, the patient's left upper extremity was sterilely prepped and draped in the usual sterile fashion. OR time-out was performed. The patient received 2 g IV Ancef. At this time, deltopectoral incision was made. This was taken down to the deltopectoral interval. The cephalic vein was then retracted laterally. The clavipectoral fascia was then incised. Conjoined tendon was retracted medially. The anterior humeral circumflex vessels were identified and ligated using 0 Vicryl stick tie. At this time, biceps tendon was identified and a subpectoral tenodesis was performed and then a tenotomy was performed just proximal to that. At this time, the biceps tendon was resected all the way back to the rotator interval in the bicipital groove all the way to the level of the glenoid making sure to keep the CA ligament intact. At this time, the upper outer edge of the subscapular tendon was tagged and a peel down of the subscapularis was done until the humeral head was identified and exposed. Humeral neck cut was then done and we were able to broach at this time up to a size 10, which was found to be rotationally and vertically stable. At this time, attention was turned to the glenoid. Posterior and anterior retractors were applied. Circumferentially the labrum as well as redundant capsule was resected. Guide was placed in the center portion of the glenoid. The peripheral reamer was then used to ream and then the central as well as superior and inferior PEG holes were then drilled. At this time, cement was mixed at the back table and the large glenoid component was then impacted and placed and held until cement was cured. Attention was turned back to the humerus. At this time, the size 10 stem was opened, and we did trial with 52 x 20 head. We set rotation and offset on this and then C-arm fluoroscopy was utilized to make sure that all the components were in good position. It was found to be in good position. At this time, the 52 x 20 mm humeral head was impacted and placed in the proper position. It was verified by C-arm fluoroscopy. Before the stem had been impacted, it was loaded with all the sutures for an Arthrex subscapularis repair. At this time, we did do the typical Arthrex subscapularis repair. Please see their guide for the technique. This was found to have a good adequate advent of the subscapularis tendon. I did place a stitch in the rotator interval with a #2 FiberWire. At this time, the patient's shoulder was found to be stable with good bounce back with no signs of dislocation or subluxation. Adequate saline was irrigated through the wound along with 1 L dilute Betadine solution. Topical tranexamic acid as well as vancomycin powder was placed and then 2-0 Vicryl was used subcutaneously and Prineo was used for the skin. The patient was sent to PACU in stable condition. SHANTA /[id number] MTDEvangelina
== END 2018-06-19 13:07 | disposition home or self-care (01) | DRG 483 ==
LOC: JD.MS 07:29
PROVIDERS: ADMIT Orthopaedic Surgery; ATTEND Orthopaedic Surgery
PROC: 0RRK0JZ Replacement of Left Shoulder Joint with Synthetic Substitute, Open Approach (ICD-10-PCS; principal; 2018-06-18)
PROC: 3E0T3BZ Introduction of Anesthetic Agent into Peripheral Nerves and Plexi, Percutaneous Approach (ICD-10-PCS; 2018-06-18)
DX: M19.012 Primary osteoarthritis, left shoulder (principal); I25.10 Atherosclerotic heart disease of native coronary artery without angina pectoris; E78.5 Hyperlipidemia, unspecified; I10 Essential (primary) hypertension; M54.30 Sciatica, unspecified side; E66.9 Obesity, unspecified; E78.00 Pure hypercholesterolemia, unspecified; Z95.1 Presence of aortocoronary bypass graft; Z87.891 Personal history of nicotine dependence; Z79.899 Other long term (current) drug therapy; Z79.82 Long term (current) use of aspirin
CPT/HCPCS: 01638; 36415; 64415; 73020-26-LT; 73020-LT; 76000; 76000-26; 80053; 85027; 86140; 87641; 97110-GP; 97116-GP; 97161-GP; 97165-GO; 97535-GO; A9270-GY; C1713; C1776; J0171; J0330; J0690; J1100; J1885; J2001; J2250; J2405; J2795; J3010; J3301; J3370; J3490; J7120

== ENCOUNTER 2019-02-10 06:35 | Emergency (ER) | payer MEDICARE, BC ==
[2019-02-10] MEDS ORDERED: Lidocaine 2% Jelly 10 ML Urojet ONE (06:49)
--- NOTE | 2019-02-10 06:59 | EDM.PDOC ---
<Tom Wallace - Last Filed: 02/10/19 06:54> ED HPI GENERAL MEDICAL PROBLEM - General Chief Complaint: Genitourinary Problem Stated Complaint: POST PROSTATE SURGERY COMPLICATIONS Time Seen by Provider: 02/10/19 06:54 Source of Information: Reports: Patient History Limitations: Reports: No Limitations - History of Present Illness INITIAL COMMENTS - FREE TEXT/NARRATIVE: This is a 68-year-old male. Last Monday he got a prostate biopsy by Dr. Vaz in [place]. The patient states is been doing fine. 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 Then he noted this morning when he attempted to urinate he had a little bit of blood and then he couldn't urinate since 4 AM. His bladder is distended he is hurting and he called Dr. Vaz who told him to come to the ER and get a 3-way catheter placed. He supposed to keep this catheter and see Dr. Vaz on Monday. He denies any fever or chills no nausea vomiting no other acute symptoms. Bladder Pain Score (Numeric/FACES): 10 - Related Data Allergies Allergy/AdvReac Type Severity Reaction Status Date / Time No Known Allergies Allergy Verified 02/10/19 06:42 Home Meds: Home Meds Allopurinol [Zyloprim] 100 mg PO DAILY 06/15/18 [History] Lisinopril 20 mg PO DAILY 06/15/18 [History] Metoprolol Tartrate 12.5 mg PO BID 06/15/18 [History] Omeprazole Magnesium [Prilosec Otc] 20 mg PO DAILY 06/15/18 [History] Rosuvastatin Calcium [Crestor] 40 mg PO BEDTIME 06/15/18 [History] Tamsulosin [Flomax] 0.4 mg PO DAILY 06/15/18 [History] Ubidecarenone [Coq-10] 100 mg PO DAILY 06/15/18 [History] amLODIPine Besylate [Norvasc] 5 mg PO DAILY 06/15/18 [History] Acetaminophen/oxyCODONE [Percocet 325-5 MG] 1 - 2 tab PO Q6H PRN #60 tablet [Rx] Aspirin [Ecotrin] 325 mg PO BID #84 tab.ec 06/18/18 [Rx] Bisacodyl [Dulcolax] 5 mg PO DAILY PRN #0 tablet 06/18/18 [Rx] Chrom Pat/Brindal Christopher [Garcinia Cambogia Tablet] 1 each PO DAILY 06/18/18 [ History] Docusate Sodium [Colace] 100 mg PO BID cap 06/18/18 [Rx] Famotidine [Pepcid] 20 mg PO Q12H tablet 06/18/18 [Rx] Magnesium Hydroxide [Milk of Magnesia] 30 ml PO BID PRN cup 06/18/18 [Rx] Sennosides [Senna] 8.6 mg PO BID PRN tablet 06/18/18 [Rx] Past Medical History HEENT History: Reports: Other (See Below) Other HEENT History: tonsillitis Cardiovascular History: Reports: CAD, High Cholesterol, Hypertension Other Cardiovascular History: Denies having any heart attack. 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 History: Reports: None Musculoskeletal History: Reports: Other (See Below) Other Musculoskeletal History: left shoulder pain, sciatica, left index fingertip amputation Neurological History: Reports: None Psychiatric History: Reports: None Endocrine/Metabolic History: Reports: None, Obesity/BMI 30+ Immunologic History: Reports: None Oncologic (Cancer) History: Reports: None Dermatologic History: Reports: None - Past Surgical History Head Surgeries/Procedures: Reports: None HEENT Surgical History: Reports: Tonsillectomy Cardiovascular Surgical History: Reports: Coronary Artery Bypass Respiratory Surgical History: Reports: None GI Surgical History: Reports: Colonoscopy Male Surgical History: Reports: Vasectomy Endocrine Surgical History: Reports: None Neurological Surgical History: Reports: None Musculoskeletal Surgical History: Reports: None Oncologic Surgical History: Reports: None Dermatological Surgical History: Reports: None Social & Family History - Family History Family Medical History: Noncontributory - Caffeine Use Caffeine Use: Reports: Coffee Other Caffeine Use: 3 cups/day ED ROS GENERAL - Review of Systems Review Of Systems: See Below Constitutional: Denies: Fever, Chills HEENT: Reports: No Symptoms Respiratory: Reports: No Symptoms Cardiovascular: Reports: No Symptoms Endocrine: Reports: No Symptoms GI/Abdominal: Reports: Abdominal Pain : Reports: Hematuria, Urinary Retention Musculoskeletal: Reports: No Symptoms Skin: Reports: No Symptoms Neurological: Reports: No Symptoms Psychiatric: Reports: No Symptoms Hematologic/Lymphatic: Reports: No Symptoms ED EXAM, RENAL/ - Physical Exam Exam: See Below Exam Limited By: No Limitations General Appearance: Alert, WD/WN, Moderate Distress Eye Exam: Bilateral Eye: Normal Inspection Ears: Normal External Exam Nose: Normal Inspection Throat/Mouth: Normal Inspection, Normal Lips, Normal Voice, No Airway Compromise Head: Normocephalic Neck: Supple Respiratory/Chest: No Respiratory Distress, Lungs Clear, Normal Breath Sounds Cardiovascular: Regular Rate, Rhythm, No Murmur GI/Abdominal: Soft, Other (Bladder is markedly distended and tender) Back Exam: Full Range of Motion Extremities: Normal Inspection, Normal Range of Motion Neurological: Alert, Oriented Psychiatric: Anxious Skin Exam: Warm, Dry Course - Vital Signs Last Recorded V/S: Last Vital Signs Temp 36.9 C 02/10/19 06:42 Pulse 80 02/10/19 06:42 Resp 18 02/10/19 06:42 BP 154/93 H 02/10/19 06:42 Pulse Ox 98 02/10/19 06:42 - Orders/Labs/Meds Orders: Active Orders 24 hr Category Date Time Status Bladder Irrigation [RC] CONTINUOUS Care 02/10/19 08:23 Active Bladder Scan [RC] ASDIRECTED Care 02/10/19 08:23 Active Insert Urinary Catheter [OM.PC] Q24H Care 02/10/19 08:30 Ordered Urinary Catheter Assessment [RC] ASDIRECTED Care 02/10/19 08:24 Active Meds: Medications Discontinued Medications Generic Name Dose Route Start Last Admin Trade Name Chelle PRN Reason Stop Dose Admin Hydromorphone HCl 1 mg 02/10/19 07:44 02/10/19 07:47 Dilaudid IVPUSH 02/10/19 07:45 1 mg ONETIME ONE Administration Hydromorphone HCl Confirm 02/10/19 07:45 02/10/19 07:49 Dilaudid Administered 02/10/19 07:46 Not Given Dose 1 mg .ROUTE .STK-MED ONE Hydromorphone HCl 1 mg 02/10/19 10:00 02/10/19 10:11 Dilaudid IVPUSH 02/10/19 10:01 1 mg ONETIME ONE Administration Lidocaine HCl Confirm 02/10/19 06:49 02/10/19 07:16 Xylocaine 2% Jelly Administered 02/10/19 06:50 Not Given Dose 10 ml .ROUTE .STK-MED ONE Lidocaine HCl 10 ml 02/10/19 07:11 02/10/19 07:16 Xylocaine 2% Jelly MUCMEM 02/10/19 07:12 10 ml ONETIME ONE Administration Lorazepam 1 mg 02/10/19 07:11 02/10/19 07:16 Ativan IVPUSH 02/10/19 07:12 1 mg ONETIME ONE Administration Departure - Departure Disposition: DC/Tfer to [facility] Clinical Impression: Gross hematuria, Urinary obstruction - Discharge Information Referrals: Jason Goodwin MD [Primary Care Provider] - Geoffrey Vaz MD [Consulting Physician] - <Thomas Cotto A - Last Filed: 02/10/19 10:53> Past Medical History Gastrointestinal History: Reports: GERD Genitourinary History: Reports: BPH (untreated) Musculoskeletal History: Reports: Gout Oncologic (Cancer) History: Reports: Prostate (untreated) - Past Surgical History HEENT Surgical History: Reports: Oral Surgery (wisdom teeth extraction) Cardiovascular Surgical History: Reports: Coronary Artery Bypass (x 3 vessel, 2007) Male Surgical History: Reports: Prostate Biopsy (x 2) Musculoskeletal Surgical History: Reports: Shoulder Surgery (left shoulder replacement) Social & Family History - Tobacco Use Smoking Status *Q: Former Smoker Years of Tobacco use: 57 Packs/Tins Daily: 1 Month/Year Tobacco Last Used: Quit 2007 - Alcohol Use Alcohol Use History: Yes Alcohol Use Frequency: Daily - Recreational Drug Use Recreational Drug Use: No - Living Situation & Occupation Living situation: Reports: , with Spouse 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 Wallace. After what initially appeared to be some success in irrigating blood clots from the patient's bladder, the nurses are now telling me that they are no longer getting anything out of the catheter, and the patient is in great pain. I have ordered 1 mg IV Dilaudid, however, if there is no improvement in the irrigation , I will need to call Dr. Vaz. 02/10/19 08:08 Notified by Emmy LEONARD that the catheter is now irrigating well. 02/10/19 09:35 Notified by Emmy LEONARD that the effluent is pinkish with high-flow irrigation, but turns red again when the flow is decreased, suggesting a continued active bleed. 02/10/19 09:[address] Vaz at 09:40. He recommended that the nurse apply traction to the catheter and tape it into place. If the bleeding continues, he should be transferred to the [facility] ED. 02/10/19 09:52 The above plan was discussed with the patient. He is agreeable to being transferred to [place], if necessary. 02/10/19 10:43 The patient has continued to bleed despite the above maneuver. Case discussed with [facility] at 10:35. Case then discussed with Dr. Clark, Emergency Physician at [facility], at 10:42. He accepted the patient for transfer to their ED. The patient will go by ground ambulance, with the irrigating catheter still in place. Departure - Departure Time of Disposition: 10:45 Condition: Fair - Discharge Information *PRESCRIPTION DRUG MONITORING PROGRAM REVIEWED*: Not Applicable *COPY OF PRESCRIPTION DRUG MONITORING REPORT IN PATIENT KARYN: Not Applicable
[2019-02-10] MEDS ORDERED: Lidocaine 2% Jelly 10 ML Urojet MUCMEM ONE (07:11)
[2019-02-10] MEDS ORDERED: LORazepam 2 MG/ML SDV IVPUSH ONE (07:11)
[2019-02-10] MEDS ORDERED: HYDROmorphone 1 MG/ML Syringe IVPUSH ONE ×2 (07:44→10:00)
[2019-02-10] MEDS ORDERED: HYDROmorphone 1 MG/ML Syringe ONE (07:45)
== END 2019-02-10 11:27 ==
LOC: JD.ED 06:35
DX: N13.9 Obstructive and reflux uropathy, unspecified (principal); R31.0 Gross hematuria; E66.9 Obesity, unspecified; I10 Essential (primary) hypertension; Z87.891 Personal history of nicotine dependence; Z79.899 Other long term (current) drug therapy
CPT/HCPCS: 51700; 51702; 51798; 96374; 96375; 96376; 99284; J1170; J2060; 99285

== ENCOUNTER 2023-06-21 06:13 | Day surgery (SDC) | payer MEDICARE, BC ==
[~2023-06-21 06:13] MED LIST changes: -Lidocaine 1%/Sod Bicarbonate in NS 8.4% 1 ML Syringe IDERM PRN; +Sodium Chloride 0.9% 10 ML Syringe FLUSH SCH
[2023-06-21] MEDS ORDERED: Bupivacaine 0.25% 10 ML SDV ONE ×3 (06:14→06:38)
[2023-06-21] MEDS ORDERED: Bupivacaine 0.5% 10 ML SDV ONE (06:17)
[2023-06-21] MEDS ORDERED: Midazolam 1 MG/ML 2 ML SDV ONE (06:23)
[2023-06-21] MEDS ORDERED: Ondansetron 4 MG/2 ML SDV ONE (06:23)
[2023-06-21] MEDS ORDERED: ceFAZolin 2 GM Vial ONE (06:23)
[2023-06-21] MEDS ORDERED: fentaNYL 100 MCG/2 ML SDV ONE (06:23)
[2023-06-21] MEDS ORDERED: Ketorolac 15 MG/ML SDV ONE (06:23)
[2023-06-21] MEDS ORDERED: Propofol 200 MG/20 ML SDV ONE (06:24)
[2023-06-21] MEDS ORDERED: Lidocaine 1% 10 ML MDV ONE (06:38)
[2023-06-21] MEDS ORDERED: Triamcinolone Acetonide 40 MG/ML 1 ML SDV ONE (06:38)
[2023-06-21] MEDS ORDERED: Ondansetron 4 MG/2 ML SDV IVPUSH PRN (07:09)
[2023-06-21] MEDS ORDERED: HYDROmorphone 0.5 MG/0.5 ML Syringe IVPUSH PRN (07:09)
[2023-06-21] MEDS ORDERED: fentaNYL 100 MCG/2 ML SDV IVPUSH PRN (07:09)
== END 2023-06-21 08:20 | disposition home or self-care (01) ==
LOC: JD.SDS 06:13
PROVIDERS: ATTEND Orthopaedic Surgery
DX: G56.03 Carpal tunnel syndrome, bilateral upper limbs (principal); I25.10 Atherosclerotic heart disease of native coronary artery without angina pectoris; M48.02 Spinal stenosis, cervical region; M10.9 Gout, unspecified; E78.5 Hyperlipidemia, unspecified; I10 Essential (primary) hypertension; E78.00 Pure hypercholesterolemia, unspecified; K21.9 Gastro-esophageal reflux disease without esophagitis; E66.9 Obesity, unspecified; Z79.899 Other long term (current) drug therapy; Z87.891 Personal history of nicotine dependence; Z95.1 Presence of aortocoronary bypass graft; Z68.34 Body mass index [BMI] 34.0-34.9, adult
CPT/HCPCS: 20526; 64721; J0690; J1885; J2250; J2405; J2704; J3010; J3301; J3490; J7120; 01810; 99100